=== PATIENT | male | born 1990 | race Caucasian/White ===

== ENCOUNTER 2022-05-31 18:28 | Emergency (ER) | payer OTHER ==
[~2022-05-31] VITALS: Ht 177.8 cm; Wt 86.7 kg
[2022-05-31 20:46] VITALS: BP 134/80
== END 2022-05-31 20:51 | disposition home or self-care (01) ==
LOC: M ED 18:28
DX: S93.402A Sprain of unspecified ligament of left ankle, initial encounter (principal); W19.XXXA Unspecified fall, initial encounter; Y93.01 Activity, walking, marching and hiking